=== PATIENT | male | born 1960 | race American Indian/Alaskan Native ===

== ENCOUNTER 2018-05-16 16:42 | Emergency (ER) | payer MEDICARE ==
[2018-05-16 16:54] VITALS: BP 135/81
--- NOTE | 2018-05-16 18:29 | Emergency Department Report ---
ED General Adult HPI - General Chief complaint: Medical Clearance Stated complaint: PAIN BREAST Time Seen by Provider: 05/16/18 18:24 Source: patient Mode of arrival: Ambulatory Limitations: No Limitations - History of Present Illness Initial comments: Patient is a 58-year-old male most with no past medical history who presents with right breast pain and complaining of feeling of lump on his chest. Patient states that he knows a lump on his chest yesterday. He states that the pain is a 4 out of 10 as an aching type of pain nothing makes the pain better and nothing makes it worse he states he's never had a lump like this before and denies having any surgeries. Patient states that he has not had trauma to the area and no shortness of breath no fever or chills. - Related Data Previous Rx's Medication Instructions Recorded Last Taken Type Diclofenac Sodium [Voltaren] 100 gm TP Q6H PRN #1 gel..gram. 05/16/18 Unknown Rx Allergies Allergy/AdvReac Type Severity Reaction Status Date / Time No Known Allergies Allergy Unverified 05/16/18 16:54 ED Review of Systems ROS: Stated complaint: PAIN BREAST Other details as noted in HPI Constitutional: denies: chills, fever Eyes: denies: eye pain, eye discharge, vision change ENT: denies: ear pain, throat pain Respiratory: denies: cough, shortness of breath, wheezing Cardiovascular: chest pain. denies: palpitations Endocrine: no symptoms reported Gastrointestinal: denies: abdominal pain, nausea, diarrhea Genitourinary: denies: urgency, dysuria Musculoskeletal: denies: back pain, joint swelling, arthralgia Skin: denies: rash, lesions Neurological: denies: headache, weakness, paresthesias Psychiatric: denies: anxiety, depression Hematological/Lymphatic: denies: easy bleeding, easy bruising ED Past Medical Hx - Past Medical History Previous Medical History?: No - Surgical History Past Surgical History?: No - Social History Smoking Status: Current Every Day Smoker Substance Use Type: None - Medications Home Medications: Home Medications Medication Instructions Recorded Confirmed Last Taken Type Diclofenac Sodium [Voltaren] 100 gm TP Q6H PRN #1 gel..gram. 05/16/18 Unknown Rx ED Physical Exam - General Limitations: No Limitations General appearance: alert, in no apparent distress - Head Head exam: Present: atraumatic, normocephalic - Eye Eye exam: Present: normal appearance - ENT ENT exam: Present: mucous membranes moist - Neck Neck exam: Present: normal inspection - Respiratory Respiratory exam: Present: normal lung sounds bilaterally, other (moble cyst tenderness to palpation of right chest ). Absent: respiratory distress - Cardiovascular Cardiovascular Exam: Present: regular rate, normal rhythm. Absent: systolic murmur, diastolic murmur, rubs, gallop - GI/Abdominal GI/Abdominal exam: Present: soft, normal bowel sounds - Rectal Rectal exam: Present: deferred - Extremities Exam Extremities exam: Present: normal inspection - Back Exam Back exam: Present: normal inspection - Neurological Exam Neurological exam: Present: alert, oriented X3 - Psychiatric Psychiatric exam: Present: normal affect, normal mood - Skin Skin exam: Present: warm, dry, intact, normal color. Absent: rash ED Course Vital Signs 05/16/18 16:52 Temperature 98.7 F Pulse Rate 56 L Respiratory 16 Rate Blood Pressure 135/81 O2 Sat by Pulse 97 Oximetry ED Medical Decision Making - Medical Decision Making Chief medical diagnosis: Fibrocystic change Differential diagnosis: Lipoma, fibroadenoma I will give patient a referrel for primary care and I will send patient home with voltaren. Discussed with patient and patient agrees with plan additional verbal discharge instructions were given. Critical care attestation.: If time is entered above; I have spent that time in minutes in the direct care of this critically ill patient, excluding procedure time. ED Disposition Clinical Impression: Breast lump, Chest wall pain Disposition: DC-01 TO HOME OR SELFCARE Is pt being admited?: No Does the pt Need Aspirin: No Condition: Stable Instructions: Chest Pain (ED), Breast Mass (ED) Prescriptions: Diclofenac Sodium [Voltaren] 100 gm TP Q6H PRN #1 gel..gram. PRN Reason: Pain, Moderate (4-6) Referrals: LORENZO SALAZAR MD [Staff Physician] - 3-5 Days
== END 2018-05-16 19:24 | disposition home or self-care (01) ==
LOC: ED 16:42
DX: N63.0 Unspecified lump in unspecified breast (principal); F17.200 Nicotine dependence, unspecified, uncomplicated
CPT/HCPCS: 99282

== ENCOUNTER 2021-01-09 09:10 | Emergency (ER) | payer MEDICARE ==
[2021-01-09 09:21] VITALS: BP 165/98
--- NOTE | 2021-01-09 10:23 | Emergency Department Report ---
[facility] Chief Complaint: Eye Problems Stated Complaint: BILATERAL EYE SWOLLEN Time Seen by Provider: 01/09/21 09:30 Duration: Today Side: Bilateral Severity: mild Symptoms: Yes Eye Itching, No Eye Redness, No Eye Pain, No Mucous Drainage, No Purulent Drainage, No Blurred Vision, No Preceding URI, No H/O Allergic Rhinitis, No Contact Lens Use, No Trauma, No Fever, No Headache Other History: This is a 60-year-old male nontoxic, well nourished in appearance, no acute signs of distress presents to the ED with c/o of bilateral eye redness, itching and crusting with some eyelid swelling that started this morning. Patient denies any trauma to the eye. Denies any foreign body sensation or floaters. Patient denies any eye pain. Patient denies any visual changes or decreased vision. Patient denies any fever, chills, nausea, vomiting, chest pain, breath, headache, stiff neck numbness or tingling. Patient denies any allergies. ED Review of Systems ROS: Stated complaint: BILATERAL EYE SWOLLEN Other details as noted in HPI Constitutional: denies: chills, fever Eyes: denies: eye pain, eye discharge, vision change ENT: denies: ear pain, throat pain Respiratory: denies: cough, shortness of breath, wheezing Cardiovascular: denies: chest pain, palpitations Endocrine: no symptoms reported Gastrointestinal: denies: abdominal pain, nausea, diarrhea Genitourinary: denies: urgency, dysuria Musculoskeletal: denies: back pain, joint swelling, arthralgia Skin: denies: rash, lesions Neurological: denies: headache, weakness, paresthesias Psychiatric: denies: anxiety, depression Hematological/Lymphatic: denies: easy bleeding, easy bruising ED Past Medical Hx - Past Medical History Previous Medical History?: No - Surgical History Past Surgical History?: No - Social History Smoking Status: Current Every Day Smoker Substance Use Type: None - Medications Home Medications: Home Medications Medication Instructions Recorded Confirmed Last Taken Type Diclofenac Sodium [Voltaren] 100 gm TP Q6H PRN #1 gel..gram. 05/16/18 Unknown Rx Polymyxin B Sulf/Trimethoprim 2 drops OU TID 7 Days #1 drops 01/09/21 Unknown Rx [Polytrim Eye Drops] [facility] Exam - Exam General: Vital signs noted. No distress. Alert and acting appropriately. Eye Exam: Neither Injection, Neither Chemosis, Neither Abnormal Pupil, Neither EOMI, Neither Eye Foreign Body, Neither Lid Foreign Body, Neither Mucous Discharge, Neither Purulent Discharge, Neither Fluorescein Uptake, Neither Fluorescein Uptake (slit lamp), Neither Cell/Flare (slit lamp), Neither Corneal Edema, Neither Photophobia HEENT: No Nasal Congestion, No Pharyngeal Erythema Remainder of HEENT: Normal Lungs: Yes Clear Lung Sounds, Yes Good Air Exchange, No Wheezes, No Stridor, No Cough, No Nasal Flaring, No Retractions, No Use of Accessory Muscles Exam: Crusting and itching to bilateral eyes noted. No periorbital cellulitis. No periorbital swelling. ED Course Vital Signs 01/09/21 09:20 Temperature 98.4 F Pulse Rate 70 Respiratory 20 Rate Blood Pressure 165/98 O2 Sat by Pulse 97 Oximetry - Reevaluation(s) Reevaluation #1: 01/09/21 10:21 Patient is speaking in full sentences with no signs of distress noted. ED Medical Decision Making - Medical Decision Making Patient be treated with Polytrim. Patient was instructed to follow-up with a critical care rn doctor in 3-5 days or if symptoms worsen and continue return to emergency room as soon as possible. At time of discharge, the patient does not seem toxic or ill in appearance. No acute signs of distress noted. Patient agrees to discharge treatment plan of care. No further questions noted by the patient. Critical care attestation.: If time is entered above; I have spent that time in minutes in the direct care of this critically ill patient, excluding procedure time. ED Disposition Clinical Impression: Bilateral conjunctivitis Qualifiers: Conjunctivitis type: acute Acute conjunctivitis type: bacterial Qualified Code(s): H10.33 - Unspecified acute conjunctivitis, bilateral Disposition: - TO HOME OR SELFCARE Is pt being admited?: No Does the pt Need Aspirin: No Condition: Stable Instructions: Bacterial Conjunctivitis, Adult Additional Instructions: follow-up with a critical care rn doctor in 3-5 days or if symptoms worsen and continue return to emergency room as soon as possible. Prescriptions: Polymyxin B Sulf/Trimethoprim [Polytrim Eye Drops] 2 drops OU TID 7 Days #1 drops Referrals: PRIMARY MD CHAS [Primary Care Provider] - 3-5 Days EDIL KEENAN MD [Staff Physician] - 3-5 Days Time of Disposition: 10:22
== END 2021-01-09 10:49 | disposition home or self-care (01) ==
LOC: ED 09:10
DX: H10.9 Unspecified conjunctivitis (principal); F17.200 Nicotine dependence, unspecified, uncomplicated; Z79.899 Other long term (current) drug therapy
CPT/HCPCS: 99282